=== PATIENT | male | born 1950 | race Hispanic/Latino ===

== ENCOUNTER 2018-12-26 11:01 | Emergency (ER) | payer MEDICARE, OTHER ==
[2018-12-26 11:05] VITALS: BP 135/91; PULSE 102; RESP 19; TEMP 98.6; O2SAT 98
[2018-12-26 11:06] VITALS: BMI 26.1
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
== END 2018-12-26 13:15 | disposition home or self-care (01) ==
LOC: H.ER 11:01 → MERGE 11:01 → H.ER 13:15
DX: F43.20 Adjustment disorder, unspecified (principal)